=== PATIENT | female | born 1995 ===

== ENCOUNTER 2017-06-15 06:07 | Emergency (ER) | payer BC, MEDICAID ==
[2017-05-11 07:46] VITALS: BMI 34.9
[2017-06-15 09:22] LABS: BASO % 0.3 % (0.0-2.0); EOS % 0.3 % (0.0-4.0); LYMPH # 1.4 K/uL (1.0-4.3); MEAN CELL VOLUME 89.8 fL (81.0-99.0); MEAN CORPUSCULAR HEMOGLOBIN 31.5 pg (27.0-31.0); MEAN CORPUSCULAR HGB CONC 35.1 g/dL (33.0-37.0); MEAN PLATELET VOLUME 10.8 fL (7.2-11.7); MONO # 0.8 K/uL (0.0-0.8); MONO % 7.5 % (0.0-10.0); RED CELL DISTRIBUTION WIDTH 12.4 % (11.5-14.5); WHITE BLOOD COUNT 10.8 K/uL (4.8-10.8)
[2017-06-15 09:26] LABS: RBC URINE < 1 /hpf (0-3); URINE BILIRUBIN NEGATIVE (NEGATIVE); URINE BLOOD 3+ (NEGATIVE); URINE COLOR Yellow (YELLOW); URINE GLUCOSE (UA) NORMAL (Normal); URINE KETONE NEGATIVE (NEGATIVE); URINE LEUKOCYTE ESTERASE TRACE Leu/uL (Negative); URINE PROTEIN NEGATIVE (NEGATIVE); URINE UROBILINOGEN NORMAL mg/dL (0.2-1.0); WBC URINE 2 /hpf (0-5)
[2017-06-15 09:31] LABS: CHLORIDE 101 mmol/L (98-107)
[2017-06-15 09:32] LABS: POTASSIUM 3.8 mmol/L (3.6-5.2); SODIUM 135 mmol/L (132-148)
[2017-06-15 09:34] LABS: ALB/GLOB RATIO 1.2 (1.0-2.1); ALKALINE PHOSPHATASE 73 U/L (38-126); ALT/SGPT 24 U/L (9-52); AST/SGOT 14 U/L (14-36); BILIRUBIN,TOTAL 0.4 mg/dL (0.2-1.3); BLOOD UREA NITROGEN 8 mg/dL (7-17); CARBON DIOXIDE 19 mmol/L (22-30); GFR AFRICAN-AMERICAN > 60; TOTAL PROTEIN 6.7 g/dL (6.3-8.3)
[2017-06-15 09:35] LABS: CALCIUM 9.2 mg/dl (8.6-10.4); GLUCOSE,RANDOM 85 mg/dL (65-105)
[2017-06-15 09:37] LABS: INR 0.9
--- NOTE | 2017-06-15 11:23 | US ---
PROCEDURE: OB Pelvic Ultrasound HISTORY: r/o placental abruption vs. placenta previa COMPARISON: None available. FINDINGS: UTERUS: Gestational sac: Single intrauterine gestation. Heart rate: 132 bpm. age (Ultrasound estimated): 29 weeks 6 days +/- 1 week 0 day Ericka-gestational hemorrhage: None. Date of delivery (Ultrasound estimated) : 08/25/2027 Placenta seen at the anterior fundus. No evidence of placenta previa. No ultrasound evidence of placenta abruption. The amount of amniotic fluid is adequate. The fetus is seen at cephalic presentation at the time of this exam. The biophysical profile is 8 of 8. CERVIX: The uterine cervix is closed and measures 3.3 centimeter. RIGHT OVARY: Was not visualized . LEFT OVARY: Was not visualized. FREE FLUID: None. OTHER FINDINGS: None. IMPRESSION: Single intrauterine live with ultrasound estimated gestational age of 29 weeks 6 days +/- 1 week 0 day. Estimated date of delivery by ultrasound is 08/25/2017. No ultrasound evidence of placenta previa or abruption seen. The placenta seen at the anterior fundus. Biophysical profile reported to be 8 of 8.
[2017-06-15 14:34] VITALS: RESP 20; TEMP 97.1
--- NOTE | 2017-06-15 14:40 | OBHP ---
Datetime: 06/15/2017 08:43 IP Adm Impression: , intrauterine Admit Comment, IP Provider: 22 y/o @ 32.2 wks GA c/o of vaginal bleedign at rest x 1 once wi th passing small clot.dark red. pt deies any additional bleedign but saw some blood after wipting aft er she was awoken to go to the bathroom. Pt denies any ctx, lof, discharge, itching but does have so me lower back discofmort pt denies any duysuria, urgency, frueqency, constipatoin. pt reprots not sex ually active. Pt reports 3rd epsidoes of faint spotting. Pt had previuos US in which placenta previa was rule out. 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 hx of fibroid, ovarian cyst, STI PMH: deies PSH: denies FHX denies SHX: negatieve etoh/tobacco/drugs MEDS: PNVS A/P @ 32.2 wks with vaginal spotting r/o placental prvia vs aburption vs labor -labs -US -conto isaias oand efm -mfm pt seen an examined no bleeding; labs wnl ve long/clsoed/pseoiror us wnl no evidce of previa , abluarpitn, ptcl stable for d/c f/u MFm outpatietn f/u OBGYN 1 week preterml labor and bleeding perucaitn sgiven Pelvic Type - PN: Adequate Extremities - PN: Normal Abdomen - PN: Normal Back - PN: Normal Breast - PN: Normal Lungs - PN: Normal Heart - PN: Normal Thyroid - PN: Not Done Neurologic - PN: Normal HEENT - PN: Normal General - PN: Normal FHR - Baseline A Provider: 135 Contraction Comments Provider: irritablity Comments, ACOG Physical Exam: Abd: sofnt, NT/ND, no guarding, no reboudn tendnere, no rigidty Back No CVA b/l Extenral Genitali: no gross abnormalies Vagina: no gross blood, blood dark brown muoucs type discarge cervix; closed, long , posterio, non tender Uerus; non tender, gravid, no palpble ctx Adnexa; liited, non tender Anus/perineum : grossly noraml Gestation - Est Wks by US: 32.2 EGA AdmitDate IP: 32.2 IP Chief Complaint: Vaginal bleeding NICHD Variability Prov Fetus A: Moderate 6-25bpm NICHD Accel Fetus A IP Provider: 15X15 FHR Category Provider Fetus A: Category I NICHD Decel Fetus A IP Provider: None Dilatation, Provider: 0 Effacement, Provider: 0 Station, Provider: -3 Genitourinary Exam: Normal DTRs - PN: Normal
[2017-06-15 19:46] VITALS: BP 120/55; PULSE 75
== END 2017-06-15 15:00 | disposition home or self-care (01) ==
LOC: C.EROB 06:07
DX: O26.853 Spotting complicating pregnancy, third trimester (principal); Z3A.32 32 weeks gestation of pregnancy

== ENCOUNTER 2017-07-16 13:47 | Emergency (ER) | payer BC, OTHER ==
[2017-05-11 07:46] VITALS: BMI 34.9
--- NOTE | 2017-07-16 18:09 | OBHP ---
Datetime: 07/16/2017 14:02 IP Adm Impression: , intrauterine IP Admit Plan: Discharge home Admit Comment, IP Provider: 21 yo at 36 weeks and 5 days with LMP (11/01/16) with RISHI (), who presents to the [facility] with complaints of " gush of fluid" and lower abdominal pressure that s tarted at 6:30am. Patient admits to movement but denies vaginal bleeding, contraction. 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 Social ETOH and denies illicit drugs VS: BP: 129/70 HR: 78 PE: See above A/P: 21 yo at 36 weeks and 5 days with complaints of leakage of fluid 1. Stable, Afebrile 2. External monitor and TOCO 3. Speculum examination: Nitrazine test negative and negative pooling of fluid 4. R/O active labor 5. Anticipate discharge home 6. Plans discussed with attending Dr Carreon was there and agrees Extremities - PN: Normal Abdomen - PN: Normal Lungs - PN: Normal Heart - PN: Normal General - PN: Normal FHR - Baseline A Provider: 130 Contraction Comments Provider: occ Comments, ACOG Physical Exam: Gen: NAD, AAOx3 Cardio: RRR, Normal S1, S2 Pulm: CTA bilaterally Abdomen: Soft, Gravid Ext: No cyanosis, no clubbing and no edema Speculum examination: Nitrazine test negative and negative pooling of fluid Cervical examination: Closed, posterior EFM: 145, + accelerations TOCO: No contractiosn Pool Provider: Negative Nitrazine Provider: Negative IP Hx Assessment: The History has been Reviewed and is Current EGA AdmitDate IP: 36.5 Vital Signs Provider: Reviewed; Within Normal Limits IP Chief Complaint: Suspected ruptured membranes NICHD Variability Prov Fetus A: Moderate 6-25bpm NICHD Accel Fetus A IP Provider: 15X15 FHR Category Provider Fetus A: Category I Dilatation, Provider: 0 Effacement, Provider: 0 Station, Provider: -3
[2017-07-16 20:47] VITALS: BP 134/81; PULSE 103
== END 2017-07-16 14:26 | disposition home or self-care (01) ==
LOC: C.EROB 13:47
DX: O26.893 Other specified pregnancy related conditions, third trimester (principal); Z3A.36 36 weeks gestation of pregnancy

== ENCOUNTER 2017-07-29 18:18 | Inpatient (IN) | payer BC, OTHER ==
[2017-07-29 18:49] VITALS: BMI 39.2
[2017-07-29] MEDS ORDERED: Lactated Ringer's 1,000 ML IV SCH (19:00)
[2017-07-29 19:06] LABS: BASO # 0.1 K/uL (0.0-0.2); BASO % 0.9 % (0.0-2.0); EOS % 0.3 % (0.0-4.0); HEMATOCRIT 39.7 % (34.0-47.0); LYMPH # 2.1 K/uL (1.0-4.3); MEAN CORPUSCULAR HEMOGLOBIN 29.8 pg (27.0-31.0); MEAN CORPUSCULAR HGB CONC 33.6 g/dL (33.0-37.0); MONO % 6.9 % (0.0-10.0); RED CELL DISTRIBUTION WIDTH 12.3 % (11.5-14.5)
[2017-07-29 19:09] LABS: MEAN CELL VOLUME 88.6 fL (81.0-99.0)
[2017-07-29 19:11] LABS: RBC URINE < 1 /hpf (0-3); URINE BILIRUBIN NEGATIVE (NEGATIVE); URINE BLOOD 1+ (NEGATIVE); URINE COLOR Straw (YELLOW); URINE GLUCOSE (UA) NORMAL (Normal); URINE KETONE NEGATIVE (NEGATIVE); URINE LEUKOCYTE ESTERASE 1+ Leu/uL (Negative); URINE PROTEIN NEGATIVE (NEGATIVE); URINE UROBILINOGEN NORMAL mg/dL (0.2-1.0); WBC URINE 2 /hpf (0-5)
[2017-07-29 19:14] LABS: CHLORIDE 102 mmol/L (98-107); SODIUM 131 mmol/L (132-148)
--- NOTE | 2017-07-29 19:14 | OBADHP ---
Datetime: 07/29/2017 18:52 Admit Comment, IP Provider: 22 y.ol , LMP ?, RISHI 08/08/17, EGA 38w 4d c/o Ctx - onset 1400 h ours, then pain scale 6/10; now 10/10 and occurring every 2-3 minutes. (+) AFM; denies LOF, VB. Pre provider: Dr. Phuong Wilcox; unremarkable P Ob: 2011, , male 7lb 7oz, [facility]; no complications. 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 Denies h/o STIs r abnormal Pap. PMH: denies PSH: 2006, age 11, appendectomy Meds: PNV Soc Hx: denies tobacco, illicit drug or etOH use. x 6 years. worlks as a construction wor ker. Fam Hx: Mother alive 54 - asthma, HTN, heart diseases. Father alive 61 - nomed issues. MGF - unk cancer P.E.: as above. Mildy obese, in moderate discomfort. Awake, alert, oriented to time, person and p lace. Pleasant and cooperative. Assessment: 22 Y.O. P1021, 38w 4d, near end of stage 1 of labor. GBS negative. Clinically stable. Plan: 1) Admit 2) NPO 3) IVFs 4) continuous EFM 5) Anticipate vaginal delivery - Dr. Wilcox aware Pelvic Type - PN: Adequate Extremities - PN: Normal Abdomen - PN: Normal Back - PN: Normal Breast - PN: Not Done Lungs - PN: Normal Heart - PN: Normal Thyroid - PN: Not Done Neurologic - PN: Normal HEENT - PN: Normal General - PN: Normal Presentation-Admit: Vertex FHR - Baseline A Provider: 145 Contraction Comments Provider: 2-4 Comments, ACOG Physical Exam: Abdomen: Gravid. Firm with contractions Cervical exam: (+) bulging membranes All other systems reviewed and are negative Gestation - Est Wks by US: 38w 4d IP Hx Assessment: The History has been Reviewed and is Current Vital Signs Provider: Reviewed; Within Normal Limits IP Chief Complaint: Uterine contractions NICHD Variability Prov Fetus A: Moderate 6-25bpm NICHD Accel Fetus A IP Provider: 15X15 FHR Category Provider Fetus A: Category I NICHD Decel Fetus A IP Provider: Early Dilatation, Provider: 9 Effacement, Provider: 90 Station, Provider: 0 Genitourinary Exam: Normal DTRs - PN: Not Done EGA AdmitDate IP: 38.4 IP Adm Impression: Term, intrauterine ; Active labor IP Admit Plan: Admit to unit; Initiate labor protocol Datetime: 07/16/2017 14:02 Pool Provider: Negative Nitrazine Provider: Negative
[2017-07-29 19:15] LABS: POTASSIUM 4.3 mmol/L (3.6-5.2)
[2017-07-29 19:17] LABS: ALKALINE PHOSPHATASE 97 U/L (38-126); ALT/SGPT 28 U/L (9-52); AST/SGOT 24 U/L (14-36); BILIRUBIN,TOTAL 0.5 mg/dL (0.2-1.3); BLOOD UREA NITROGEN 12 mg/dL (7-17); CARBON DIOXIDE 18 mmol/L (22-30); GFR AFRICAN-AMERICAN > 60; GLUCOSE,RANDOM 69 mg/dL (65-105); TOTAL PROTEIN 8.2 g/dL (6.3-8.3)
[2017-07-29 19:18] LABS: CALCIUM 9.3 mg/dl (8.6-10.4)
--- NOTE | 2017-07-29 19:19 | OBDS ---
DELIVERY PERSONNEL Delivery Doctor: Stewart Wilcox MD Scrub Nurse: NYodit Anesthesiologist: NYodit Resident: Lele MATERNAL INFORMATION Provider Comments: pt was fully dilated and pushing, precipious delivery en call over intact pereinu m. Nuchal adn body cord x 1 reduced. umbilcal cord clamped and cut. baby handed to mother on abodmen with rn assistance. cord blood collected x 2. spotnaoeus dlivey rof intact palcent with membrnes. fun dus firm. good hemostaiss, no lacerations. no cmplication ebl 200ml 9,9 weight of 5lb 14 ounces LABOR SUMMARY EDC: 08/08/2017 00:00 No. Babies in Womb: 1 Attempted: No Labor Anesthesia: None LABOR INFORMATION Onset of Labor: 07/29/2017 14:00 Complete Dilatation: 07/29/2017 19:00 MEMBRANES Membranes Rupture Method: Artificial Rupture of Membranes: 07/29/2017 19:01 Length of Rupture (hrs): 0.02 STAGES OF LABOR Stage 1 hrs: 5 Stage 1 min: 0 Stage 2 hrs: 0 Stage 2 min: 2 Stage 3 hrs: 0 Stage 3 min: 9 Total Time in Labor hrs: 5 Total Time in Labor min: 11 VAGINAL DELIVERY Episiotomy: None Laceration Extension: N/A Laceration Type: None Laceration Repair: /A Laceration Repair Note: intact Initial Vag Sponge Count: 1 LAP, 10 X-RAYS Final Vag Sponge Count: 1 LAP, 1O X-RAYS Initial Vag Sharps Count: 0 Final Vag Sharps Count: 0 Sponge Count Correct: N/A Sharps Count Correct: NO SHARPS USED Count Comment: ALL ACCOUNTED FOR BABY A INFORMATION Delivery Date/Time: 07/29/2017 19:02 Method of Delivery: Vaginal SHOULDER DYSTOCIA BABY A Infant Delivery Date/Time: 07/29/2017 19:02 PRESENTATION/POSITION BABY A Presentation: Cephalic Cephalic Presentation: Vertex Breech Presentation: N/A PLACENTA INFORMATION BABY A Placenta Delivery Time : 07/29/2017 19:11 SCORES BABY A Heart Rate 1 min: >100 bpm Resp Effort 1 min: Good Cry Reflex Irritability 1 min: Cough or Sneeze or Pulls Away Muscle Tone 1 min: Active Motion Color 1 min: Body [place], Extremities Blue Resuscitation Effort 1 min: N/A SCORE 1 MIN: 9 Heart Rate 5 min: >100 bpm Resp Effort 5 min: Good Cry Reflex Irritability 5 min: Cough or Sneeze or Pulls Away Muscle Tone 5 min: Active Motion Color 5 min: Body [place], Extremities Blue Resuscitation Effort 5 min: N/A SCORE 5 MIN: 9 INFANT INFORMATION BABY A Gestational Age at Delivery: 38.4 Gestational Status: Term Infant Outcome : Liveborn Condition : Stable Infant Sex: Male IDENTIFICATION/MEDS BABY A ID Band Number: [id number] ID Band Location: Left Leg; Left Arm Sensor Applied: Yes Sensor Number: [id number] Sensor Location : Cord Clamp Vitamin K Given : Not Given Erythromycin Given: Not Given WEIGHT/LENGTH BABY A Infant Birthweight (gms): 2670 Weight (lb): 5 Infant Weight (oz): 14 Length Inches: 18.75 Length cms: 47.6 CORD INFORMATION BABY A No. Cord Vessels: #3 Nuchal Cord : X1 AROUND NECK, X1 BODY Cord Blood Taken: Yes Suction: None ASSESSMENT BABY A Complications: None Physical Findings at Delivery: Within Normal Limits Respirations: Appears Normal Customs Officer/ALS Called : No Transferred To: [facility]
[2017-07-29] MEDS ORDERED: Oxycodone/Acetaminophen 5/325 mg Tab PO PRN (19:20)
[2017-07-29] MEDS ORDERED: Oxytocin 30 UNIT 30 UNITS/500 ML BAG IV SCH (19:30)
[2017-07-30 08:11] LABS: BASO % 0.4 % (0.0-2.0); EOS % 0.4 % (0.0-4.0); HEMATOCRIT 37.7 % (34.0-47.0); LYMPH # 1.8 K/uL (1.0-4.3); LYMPH % 14.3 % (20.0-40.0); MEAN CELL VOLUME 88.9 fL (81.0-99.0); MEAN CORPUSCULAR HEMOGLOBIN 30.3 pg (27.0-31.0); MEAN PLATELET VOLUME 11.9 fL (7.2-11.7); MONO # 0.9 K/uL (0.0-0.8); MONO % 7.4 % (0.0-10.0); RED CELL DISTRIBUTION WIDTH 12.7 % (11.5-14.5); WHITE BLOOD COUNT 12.5 K/uL (4.8-10.8)
--- NOTE | 2017-07-30 10:17 | OBPPN ---
Datetime: 07/30/2017 07:00 PP Pain Prov: Within normal limits PP Nausea Prov: Denies PP Flatus Prov: Yes PP Heart Prov: Normal PP Lungs Prov: Normal PP Abdomen/Uterus Prov: Normal PP Lochia Prov: Normal PP Extremities Prov: Normal PP Progress Prov: Normal PP Comments Phys Exam Prov: Abdomen: Soft, non-tender, fundus is firm and slightly above the umbilic us PP Impression Prov: Normal progression PP Plan Prov: Continue present management PP Progress Note Prov: Patient was seen and examined at bedside. Patient reports that she is doing w ell and has no complaints. Patient is tolerating diet and ambulating. Patient admits to passing flatu s, urinating without difficulty and mild lochia. Patient denies nausea, fever, chills, BM, nausea, vo miting, calf tenderness. VS: F/U am vitals VSS Physical Examination: Gen: AAOx3, NAD Cardio: RRR, Normal S1, S2 Pulm: CTA bilaterally Abdomen: Soft, non-tender, fundus is firm and slightly above the umbilicus Breast: Non-tender, engorged Ext: No edema, clubbing and no cyanosis Labs: 15.0>13.4/39.7<204, f/u am CBC O positive, rubella immune A/P: 22 yo at 38 weeks and 4 days, who is now , S/P , PPD#1 1. Stable 2. Pain is well-controlled: Motrin and Percocet 3. F/u am CBC 4. Continue hydration and ambulation 5. Continue breast feeding 6. Male : Desires circumcision 7. Anticipate discharge tomorrow 8. Plans discussed with attending Malou Qiu DO, PGY-1 agree wth above
[2017-07-30] MEDS: Multiple Vitamins Tab PO SCH (10:45)
[2017-07-30] MEDS: Oxycodone/Acetaminophen 5/325 mg Tab PO PRN (19:20)
[2017-07-31] MEDS: Oxycodone/Acetaminophen 5/325 mg Tab PO PRN (06:02)
[2017-07-31 08:27] VITALS: BP 115/68; PULSE 79; RESP 18; TEMP 97.1; O2SAT 98
[2017-07-31] MEDS: Multiple Vitamins Tab PO SCH (09:32)
--- NOTE | 2017-08-01 15:02 | OBPPN ---
Datetime: 07/31/2017 07:15 PP Pain Prov: Within normal limits PP Nausea Prov: Present PP Flatus Prov: Yes PP BM Prov: Yes PP Heart Prov: Normal PP Lungs Prov: Normal PP Abdomen/Uterus Prov: Normal PP Lochia Prov: Normal PP Extremities Prov: Normal PP Progress Prov: Normal PP Comments Phys Exam Prov: Abdomen: Soft, non-tender, fundus is firm and below the umbilicus PP Impression Prov: Normal progression PP Plan Prov: Discharge PP Progress Note Prov: Patient was seen and examined at bedside. Patient reports that she is doing w ell and has no complaints. Patient is tolerating diet and ambulating. Patient admits to passing flatu s, urinating without difficulty, BM, light lochia. Patient denies nausea, fever, chills, nausea, vomi ting, calf tenderness. Patient is breast feeding VS: BP:131/83, temp: 98.7, HR:76, RR:20 Physical Examination: Gen: AAOx3, NAD Cardio: RRR, Normal S1, S2 Pulm: CTA bilaterally Abdomen: Soft, non-tender, fundus is firm and slightly above the umbilicus Breast: Non-tender, engorged Ext: No edema, clubbing and no cyanosis Labs: 15.0>13.4/39.7<204, 12.5>12.8/37.7<167 O positive, rubella immune A/P: 22 yo at 38 weeks and 4 days, who is now , S/P , PPD#2 1. Stable, Afebrile 2. Pain is well-controlled 3. Continue hydration and ambulation 4. Continue breast feeding 5. Discharge today: Pelvic rest and nothing per vagina for 6 weeks, OTC motrin and tylenol for geronimo n control, f/u in the clinic in 6 weeks, continue ambulation and hydration 6. Anticipate discharge tomorrow 7. Plans discussed with attending Malou Qiu DO, PGY-1 dealye entry p[t seen adn examiend with resident Vital Signs Provider PP: Reviewed; Within Normal Limits Vital Signs Provider Details PP: Nausea/vomiting due to percocet
== END 2017-07-31 12:45 | disposition home or self-care (01) | DRG 775 ==
LOC: C.EROB 18:18 → C.4D 18:49 → C.4M 21:00
PROVIDERS: ADMIT Obstetrics & Gynecology; ATTEND Obstetrics & Gynecology
PROC: 10E0XZZ Delivery of Products of Conception, External Approach (ICD-10-PCS; principal; 2017-07-29)
PROC: 10907ZC Drainage of Amniotic Fluid, Therapeutic from Products of Conception, Via Natural or Artificial Opening (ICD-10-PCS; 2017-07-29)
DX: O69.1XX0 Labor and delivery complicated by cord around neck, with compression, not applicable or unspecified (principal); O99.214 Obesity complicating childbirth; Z68.39 Body mass index [BMI] 39.0-39.9, adult; Z3A.38 38 weeks gestation of pregnancy; Z37.0 Single live birth